=== PATIENT | male | born 1985 | race Caucasian/White ===

== ENCOUNTER → 2018-03-03 16:03 | Outpatient (CLI) | payer OTHER, SELFPAY ==
[2018-03-03 16:08] LABS: Bacteria 0 SEEN /hpf (None Seen); Mucous, Urine 0 SEEN /hpf (<or=2+); Red Blood Cells-Urine 0 SEEN /hpf (0-5); White Blood Cells 0 SEEN /hpf (0-5)
[2018-03-03 17:15] LABS: Hematocrit 47.4 % (40-54); Hemoglobin 16.2 g/dl (13.0-16.5); Mean Corp Hgb Conc 34.2 g/gl (32-36); Mean Corpuscular Hgb 30.2 pg (27.0-32.0); Mean Corpuscular Volume 88.4 fL (80-94); Mean Platelet Vol. 10.1 fl (6.2-12.0); Platelet Count 203 K/mm3 (150-450); RBC Distribution Width CV 12.1 % (11.6-14.6); RBC Distribution Width SD 38.3 fl (35.1-43.9); Red Blood Count 5.36 M/mm3 (4.6-6.2); Scan Indicated on CBC? Y/N NO; White Blood Count 7.3 K/mm3 (4.4-11.0)
[2018-03-03 17:18] LABS: Color, Urine Yellow (Yellow); Glucose, Dipstick Normal (Normal); Ketone-Dipstick Negative (Negative); Leukocyte Esterase-Dipstick Negative /ul (Negative); Nitrite-Dipstick Negative (Negative); Occult Blood-Urine Negative /ul (Negative); Protein-Dipstick Negative (Negative); Urine Bilirubin Dipstick Negative (Negative); Urine Clarity Clear (Clear); Urine Urobilinogen Normal (Normal); Urine pH 6.5 (5.0 - 8.0)
[2018-03-03 17:35] LABS: Squamous Epithelial Cells - UA 0-5 SEEN /hpf (0-5)
[2018-03-03 17:59] LABS: ALB/GLOB Ratio 1.3 RATIO (0.9-2.4); AST(SGOT) 89 U/L (15-37); Alanine Aminotransfer ALT/SGPT 64 U/L (16-61); Albumin, Serum 4.1 g/dL (3.2-5.0); Alkaline Phosphatase 65 U/L (45-117); Anion Gap 7 (5-15); BUN 29 mg/dL (7-18); Calcium,Total 8.8 mg/dL (8.5-10.1); Chloride 103 mmol/L (98-107); Creatinine, Serum 1.45 mg/dL (0.70-1.30); EST Glomerular Filtration Rate 59 mL/min (>60); Est Glom Filt Rate - Afr Amer 72 mL/min (>60); Globulin 3.2 g/dL (2.2-4.2); Glucose 98 mg/dL (74-106); Protein, Total 7.3 g/dL (6.4-8.2); Sodium Level 139 mmol/L (136-145)
== END ==
PROVIDERS: Family Provider Family Medicine; PCP Family Medicine; Visit Provider Internal Medicine Nephrology
DX: I10 Essential (primary) hypertension (principal)
CPT/HCPCS: 36415; 80053; 81001; 85027

== ENCOUNTER → 2018-03-07 12:07 | Outpatient (CLI) | payer OTHER, SELFPAY ==
--- NOTE | 2018-03-07 12:11 | US_ITS ---
STUDY: RENAL ULTRASOUND - COMPLETE REASON FOR EXAM: Male, 32 years old. Hypertension. TECHNIQUE: Ultrasound evaluation of the kidneys was performed with real-time and static martinez-scale imaging. COMPARISON: None. FINDINGS: RIGHT KIDNEY: Normal location of the right kidney, which is normal in size. The right kidney measures 10.5 x 5.9 x 5.3 cm. There is a normal cortex of the right kidney. The renal cortex measures 1.4 cm. There is no right renal mass or cyst. There are no right renal calculi. There is no right hydronephrosis. DISTAL RIGHT URETER: There is non-visualization of the distal right ureter. There is no demonstrated right ureterovesical junction calculus. There is a visualized right ureteral jet. LEFT KIDNEY: Normal location of the left kidney, which is normal in size. The left kidney measures 10.9 x 5.4 x 5.3 cm. There is a normal cortex of the left kidney. The renal cortex measures 1.5 cm. There is no left renal mass or cyst. There are no left renal calculi. There is no left hydronephrosis. DISTAL LEFT URETER: There is non-visualization of the distal left ureter. There is no demonstrated left ureterovesical junction calculus. There is a visualized left ureteral jet. BLADDER: The distended urinary bladder has a volume of 542 ml. The empty urinary bladder has a volume of 39 ml. There is a normal wall thickness of the distended urinary bladder. There is no demonstrated mass within the urinary bladder. There are no demonstrated bladder calculi. US/Kidney and Bladder IMPRESSION: Normal ultrasound of the kidneys and urinary bladder. Electronically Signed: Mark Florian MD at 16:13 EDT , Service support ,
== END ==
PROVIDERS: Family Provider Family Medicine; PCP Family Medicine; Visit Provider Internal Medicine Nephrology
DX: I10 Essential (primary) hypertension (principal)
CPT/HCPCS: 76770

== ENCOUNTER → 2018-03-08 14:40 | Outpatient (CLI) | payer OTHER, SELFPAY ==
[2018-03-08 17:21] LABS: Urine Sodium 61 mmol/L (Not Establ.)
== END ==
PROVIDERS: Family Provider Family Medicine; PCP Family Medicine; Visit Provider Internal Medicine Nephrology
DX: I10 Essential (primary) hypertension (principal)
CPT/HCPCS: 84300

== ENCOUNTER → 2018-03-11 07:46 | Outpatient (CLI) | payer OTHER, SELFPAY ==
--- NOTE | 2018-03-11 07:49 | US_ITS ---
STUDY: ABDOMINAL ULTRASOUND - RIGHT UPPER QUADRANT REASON FOR VISIT: Male, 32 years old. Elevated LFTs TECHNIQUE: Ultrasound evaluation of the right upper quadrant was performed with real-time and static bello-scale imaging. TECHNICAL QUALITY: Adequate. COMPARISON: None. FINDINGS: Liver: The liver measures 15.5 cm. There is increased echogenicity consistent with fatty infiltration. The bile ducts are within normal limits. There is hepatic color flow. The direction of portal flow is hepatopetal. There is no demonstrated mass lesion. Gallbladder: Normal distended gallbladder. The gallbladder wall measures 2.8 mm. There is a negative sonographic Ziegler's sign. There is no pericholecystic fluid. There are no gallstones, too small nonshadowing polyps noted larger measures 5 mm, smaller 3 mm.. Common Bile Duct (C.B.D.): The common bile duct measures 5.4 mm. Pancreas: Normal size of the head, body and tail of the pancreas. There is normal echogenicity of the pancreas. There is no demonstrated pancreatic mass or cyst. Right Kidney: Normal size of the right kidney. The right kidney measures 10.5 x 6.3 x 4.5 cm. Normal renal cortex. The right cortex measures 2.0 cm. There is no demonstrated renal mass or cyst. There is no right hydronephrosis. US/Liver IMPRESSION: Fatty infiltration of liver, no discrete lesion No sonographic evidence of acute gallbladder disease, small nonshadowing gallbladder polyps noted. Electronically Signed: Rommel Cleveland MD at 8:58 EDT , Service support ,
== END ==
PROVIDERS: Family Provider Family Medicine; PCP Family Medicine; Visit Provider Internal Medicine Nephrology
DX: R74.8 Abnormal levels of other serum enzymes (principal)
CPT/HCPCS: 76705

== ENCOUNTER → 2018-03-16 06:41 | Outpatient (CLI) | payer OTHER, SELFPAY ==
[2018-03-16 07:55] LABS: Cholesterol 170 mg/dL (200); High Density Lipoprotein 38 mg/dL; Triglycerides 70 mg/dL; Very Low Density Lipoprotein 14 mg/dL (5-40)
== END ==
PROVIDERS: Family Provider Family Medicine; PCP Family Medicine; Visit Provider Internal Medicine Nephrology
DX: R74.8 Abnormal levels of other serum enzymes (principal)
CPT/HCPCS: 36415; 80061

== ENCOUNTER → 2018-04-13 14:24 | Outpatient (CLI) | payer OTHER, SELFPAY ==
[2018-04-13 18:02] LABS: ALB/GLOB Ratio 1.2 RATIO (0.9-2.4); AST(SGOT) 23 U/L (15-37); Alanine Aminotransfer ALT/SGPT 36 U/L (16-61); Albumin, Serum 3.9 g/dL (3.2-5.0); Alkaline Phosphatase 74 U/L (45-117); Anion Gap 9 (5-15); BUN 29 mg/dL (7-18); BUN/Creat Ratio 25.2 RATIO (10-20); Calcium,Total 8.7 mg/dL (8.5-10.1); Chloride 106 mmol/L (98-107); Creatinine, Serum 1.15 mg/dL (0.70-1.30); EST Glomerular Filtration Rate 77 mL/min (>60); Est Glom Filt Rate - Afr Amer 94 mL/min (>60); Globulin 3.2 g/dL (2.2-4.2); Glucose 101 mg/dL (74-106); Potassium 4.2 mmol/L (3.5-5.1); Protein, Total 7.1 g/dL (6.4-8.2); Sodium Level 142 mmol/L (136-145)
== END ==
PROVIDERS: Family Provider Family Medicine; PCP Family Medicine; Visit Provider Internal Medicine Nephrology
DX: N18.2 Chronic kidney disease, stage 2 (mild) (principal); R74.8 Abnormal levels of other serum enzymes
CPT/HCPCS: 36415; 80053

== ENCOUNTER → 2018-11-10 12:41 | Outpatient (CLI) | payer OTHER, SELFPAY ==
[2018-11-10 13:17] LABS: Protein, Urine (Random) 13.9 mg/dL (<11.9); Protein:Creat Ratio 101 mg/g CRE (0-200)
[2018-11-10 13:32] LABS: Albumin, Serum 4.3 g/dL (3.2-5.0); BUN 24 mg/dL (7-18); BUN/Creat Ratio 19.4 RATIO (10-20); Calcium,Total 9.2 mg/dL (8.5-10.1); Chloride 106 mmol/L (98-107); Creatinine, Serum 1.24 mg/dL (0.70-1.30); EST Glomerular Filtration Rate 71 mL/min (>60); Est Glom Filt Rate - Afr Amer 86 mL/min (>60); Glucose 105 mg/dL (74-106); Phosphorus 3.1 mg/dL (2.5-4.9); Potassium 4.5 mmol/L (3.5-5.1); Sodium Level 139 mmol/L (136-145)
== END ==
PROVIDERS: Family Provider Family Medicine; PCP Family Medicine; Referring Provider Internal Medicine Nephrology; Visit Provider Internal Medicine Nephrology
DX: N18.2 Chronic kidney disease, stage 2 (mild) (principal)
CPT/HCPCS: 36415; 80069; 82570; 84156

== ENCOUNTER → 2019-05-29 | Outpatient (CLI) | payer OTHER, SELFPAY ==
[2019-05-29 12:07] LABS: Protein, Urine (Random) 15.1 mg/dL (<11.9); Protein:Creat Ratio 87 mg/g CRE (0-200)
[2019-05-29 12:20] LABS: BUN 23 mg/dL (7-18); Chloride 106 mmol/L (98-107); Creatinine, Serum 1.21 mg/dL (0.70-1.30); EST Glomerular Filtration Rate 73 mL/min (>60); Est Glom Filt Rate - Afr Amer 88 mL/min (>60); Glucose 73 mg/dL (74-106); Phosphorus 1.8 mg/dL (2.5-4.9); Potassium 4.2 mmol/L (3.5-5.1); Sodium Level 138 mmol/L (136-145)
== END | disposition home or self-care (01) ==
LOC: LAB 10:51
PROVIDERS: Referring Provider Internal Medicine Nephrology; Visit Provider Internal Medicine Nephrology
DX: N18.2 Chronic kidney disease, stage 2 (mild) (principal)
CPT/HCPCS: 36415; 80069; 82570; 84156

== ENCOUNTER → 2020-04-05 | Outpatient (CLI) | payer OTHER, SELFPAY ==
[2020-04-05 10:09] LABS: Albumin, Serum 4.1 g/dL (3.2-5.0); BUN 22 mg/dL (7-18); BUN/Creat Ratio 19.3 RATIO (10-20); Calcium,Total 9.2 mg/dL (8.5-10.1); Chloride 109 mmol/L (98-107); Creatinine, Serum 1.14 mg/dL (0.70-1.30); EST Glomerular Filtration Rate 77 mL/min (>60); Est Glom Filt Rate - Afr Amer 94 mL/min (>60); Glucose 106 mg/dL (74-106); Phosphorus 2.5 mg/dL (2.5-4.9); Potassium 4.1 mmol/L (3.5-5.1); Sodium Level 140 mmol/L (136-145)
[2020-04-05 10:33] LABS: Protein, Urine (Random) 20.4 mg/dL (<11.9); Protein:Creat Ratio 98 mg/g CRE (0-200)
== END | disposition home or self-care (01) ==
PROVIDERS: Referring Provider Internal Medicine Nephrology; Visit Provider Internal Medicine Nephrology
DX: N18.2 Chronic kidney disease, stage 2 (mild) (principal)
CPT/HCPCS: 36415; 80069; 82570; 84156

== ENCOUNTER → 2020-11-20 09:19 | Outpatient (CLI) | payer OTHER, SELFPAY ==
[2020-11-20 10:48] LABS: Anion Gap 2 (5-15); BUN 22 mg/dL (7-18); BUN/Creat Ratio 18.8 RATIO (10-20); Calcium,Total 9.3 mg/dL (8.5-10.1); Chloride 105 mmol/L (98-107); Cholesterol 220 mg/dL (200); Creatinine, Serum 1.17 mg/dL (0.70-1.30); EST Glomerular Filtration Rate 75 mL/min (>60); Est Glom Filt Rate - Afr Amer 90 mL/min (>60); Glucose 105 mg/dL (74-106); High Density Lipoprotein 43 mg/dL; Potassium 4.3 mmol/L (3.5-5.1); Sodium Level 137 mmol/L (136-145); Triglycerides 52 mg/dL; Very Low Density Lipoprotein 10 mg/dL (5-40)
== END ==
PROVIDERS: PCP Family Medicine; Referring Provider Family Medicine; Visit Provider Family Medicine
DX: I10 Essential (primary) hypertension (principal)
CPT/HCPCS: 36415; 80048; 80061

== ENCOUNTER → 2022-03-17 | Outpatient (CLI) | payer OTHER, SELFPAY ==
[2022-03-17 10:55] LABS: ALB/GLOB Ratio 1.4 RATIO (0.9-2.4); AST(SGOT) 28 U/L (15-37); Alanine Aminotransfer ALT/SGPT 43 U/L (16-61); Albumin, Serum 4.1 g/dL (3.2-5.0); Alkaline Phosphatase 70 U/L (45-117); Anion Gap 4 (5-15); BUN 18 mg/dL (7-18); BUN/Creat Ratio 14.6 RATIO (10-20); Calcium,Total 8.8 mg/dL (8.5-10.1); Chloride 106 mmol/L (98-107); Cholesterol 106 mg/dL (200); Creatinine, Serum 1.23 mg/dL (0.70-1.30); EST Glomerular Filtration Rate 70 mL/min (>60); Est Glom Filt Rate - Afr Amer 85 mL/min (>60); Glucose 102 mg/dL (74-106); High Density Lipoprotein 30 mg/dL; Protein, Total 7.1 g/dL (6.4-8.2); Sodium Level 138 mmol/L (136-145); Triglycerides 49 mg/dL; Very Low Density Lipoprotein 10 mg/dL (5-40)
== END | disposition home or self-care (01) ==
LOC: MFPLAB 09:31
PROVIDERS: PCP Family Medicine; Referring Provider Family Medicine; Visit Provider Nurse Practitioner Family
DX: I10 Essential (primary) hypertension (principal); E78.5 Hyperlipidemia, unspecified
CPT/HCPCS: 36415; 80053; 80061

== ENCOUNTER → 2024-01-04 | Outpatient (CLI) | payer BC, SELFPAY | END | disposition home or self-care (01) | LOC: SL 10:53 | PROVIDERS: PCP Nurse Practitioner Family; Referring Provider Nurse Practitioner Family; Visit Provider Nurse Practitioner Family | DX: G47.10 Hypersomnia, unspecified (principal) | CPT/HCPCS: 95806 ==

== ENCOUNTER → 2025-01-24 | Outpatient (CLI) | payer BC, SELFPAY ==
[2025-01-24 12:47] LABS: Color, Urine Yellow (Yellow); Glucose, Dipstick Normal (Normal); Ketone-Dipstick Negative (Negative); Leukocyte Esterase-Dipstick Negative /ul (Negative); Nitrite-Dipstick Negative (Negative); Occult Blood-Urine 10 /ul (Negative); Protein-Dipstick Negative (Negative); Specific Gravity, Urine 1.015 (1.002-1.030); Urine Bilirubin Dipstick Negative (Negative); Urine Clarity Clear (Clear); Urine Urobilinogen Normal (Normal)
[2025-01-24 12:50] LABS: Absolute Lymphocyte Count 1.69 X10^3/uL (0.83-4.51); Absolute Neutrophil Count 5.2 X10^3/uL (2.0-7.7); Basophil# 0.07 X10^3/uL; Basophil% 0.9 % (0-1); Eosinophil# 0.28 X10^3/uL; Eosinophils% 3.5 % (0-5); Hematocrit 46.3 % (40-54); Hemoglobin 16.1 g/dL (13.0-16.5); Lymphocyte # 1.69 X10^3/ul (0.83-4.51); Lymphocyte % 21.4 % (19-41); Mean Corp Hgb Conc 34.8 g/dL (32-36); Mean Corpuscular Hgb 30.5 pg (27.0-32.0); Mean Corpuscular Volume 87.7 fL (80-94); Mean Platelet Vol. 10.5 fl (6.2-12.0); Monocyte# 0.62 X10^3/uL; Monocyte% 7.9 % (0-10); NRBC Flagged by Analyzer 0 % (0-5); Neutrophil # 5.21 X10^3/uL (2.7-7.7); Platelet Count 232 K/mm3 (150-450); RBC Distribution Width CV 11.9 % (11.6-14.6); RBC Distribution Width SD 37.8 fl (35.1-43.9); Red Blood Count 5.28 M/mm3 (4.6-6.2); White Blood Count 7.9 K/mm3 (4.4-11.0)
[2025-01-24 13:39] LABS: AST(SGOT) 24 U/L (<=37); Alanine Aminotransfer ALT/SGPT 22 U/L (<=46); Albumin, Serum 4.6 g/dL (3.5-5.0); Alkaline Phosphatase 56 U/L (40-129); Anion Gap 10 (5-15); BUN 24 mg/dL (4-19); BUN/Creat Ratio 23.1 RATIO (10-20); Calcium,Total 9.6 mg/dL (7.6-11.0); Carbon Dioxide 24.3 mmol/L (21.0-32.0); Chloride 104 mmol/L (98-108); Cholesterol 138 mg/dL (<=200); Creatinine, Serum 1.05 mg/dL (0.70-1.20); EST Glomerular Filtration Rate 92 (>60); Globulin 2.3 g/dL (2.2-4.2); Glucose 104 mg/dL (70-99); High Density Lipoprotein 47 mg/dL; Low Density Lipoprotein Calc. 78 mg/dL; Protein, Total 6.9 g/dL (5.9-8.4); Sodium Level 139 mmol/L (133-145); Total Bilirubin 0.42 mg/dL (0.00-1.30); Triglycerides 68 mg/dL; Very Low Density Lipoprotein 14 mg/dL (5-40); Vitamin B12 619 pg/mL (180-914); Vitamin D,25 Hydroxy 46.5 ng/mL (30-100); cholesterol:hdl ratio screen 2.95
[2025-01-30 13:08] LABS: Testosterone, % Free 3.31 % (1.50-4.20); Testosterone, Free 15.42 ng/dL (5.00-21.00); Testosterone, Total 466 ng/dL (264-916)
== END | disposition home or self-care (01) ==
LOC: VSLAB 09:47
PROVIDERS: PCP Nurse Practitioner Family; Visit Provider Nurse Practitioner Family
DX: I10 Essential (primary) hypertension (principal); E29.1 Testicular hypofunction
CPT/HCPCS: 36415; 80053; 80061; 81002; 82306; 82607; 84402; 84403; 84443; 85025